=== PATIENT | female | born 1985 | race Caucasian/White ===

== ENCOUNTER → 2016-03-13 | Outpatient (CLI) | payer OTHER ==
[2016-03-13 14:00] LABS: FREE T4 1.29 NG/DL (0.76-1.46)
== END ==
LOC: M WUC 12:11
PROVIDERS: ATTEND Physician Assistant Medical
DX: E06.3 Autoimmune thyroiditis (principal)

== ENCOUNTER → 2016-04-17 | Outpatient (CLI) | payer OTHER ==
[2016-04-17 20:37] LABS: FREE T4 1.21 NG/DL (0.76-1.46)
== END ==
LOC: M WUC 16:34
PROVIDERS: ATTEND Physician Assistant Medical
DX: E06.3 Autoimmune thyroiditis (principal)

== ENCOUNTER 2016-05-04 10:18 | Emergency (ER) | payer OTHER ==
[~2016-05-04] VITALS: Ht 160 cm; Wt 95.3 kg
[2016-05-04 10:18] VITALS: BP 135/78
[2016-05-04] MEDS ORDERED: LEVO150T7 PO (10:35)
[2016-05-04] MEDS ORDERED: PRENTAB52 PO (10:35)
--- NOTE | 2016-05-05 12:21 | ECGEPIP ---
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 Order Number: [id number] Reading MD: Cassidy Hall Measurements Intervals [place] Rate: 67 P: -17 VA: 126 QRS: -1 QRSD: 86 T: 1 QT: 416 QTc: 442 Interpretive Statements SINUS RHYTHM NSTTW ABNORMALITY NO PRIOR FOR COMPARISON Electronically Signed On 05-05-2016 12:21:18 EST by Cassidy Hall
== END 2016-05-04 12:29 | disposition home or self-care (01) ==
LOC: M ED 11:52
DX: O26.892 Other specified pregnancy related conditions, second trimester (principal); M94.0 Chondrocostal junction syndrome [Tietze]; O99.282 Endocrine, nutritional and metabolic diseases complicating pregnancy, second trimester; E03.9 Hypothyroidism, unspecified; Z3A.18 18 weeks gestation of pregnancy; Z79.899 Other long term (current) drug therapy

== ENCOUNTER → 2016-05-09 | Outpatient (CLI) | payer OTHER ==
[~2016-05-09] MED LIST: LEVO150T7 PO; PRENTAB52 PO
--- NOTE | 2016-05-10 10:24 | REP ---
OB ULTRASOUND: Real-time sonographic evaluation of the gravid uterus performed. There is a single intrauterine gestation, estimated gestational age 20 weeks 2 days, EDC 09/24/2016. Today's measurements indicate appropriate growth. BPD 46 mm 19 weeks 6 days, 40th percentile HC 170 mm 19 weeks 4 days, 29th percentile AC 154 mm 20 weeks 4 days, 56th percentile FL 34 mm 20 weeks 5 days, 59th percentile HC/AC ratio 1.10 within normal range. Estimated weight 358 grams, 54th percentile. Cervix is closed and measures 4.6 cm in length. heart rate 144 beats per minute. SEEN/GROSSLY UNREMARKABLE Lateral ventricles Yes Posterior fossa Yes Upper lip Yes Four-chamber heart Yes LVOT Yes RVOT Yes Stomach Yes Cord insertion Yes Three vessel cord Yes Kidneys Yes Bladder Yes Spine Yes Four chamber heart - Echogenic focus in the left ventricle likely related to chordae tendineae. position transverse with head toward the maternal left side. Placenta is anterior and grade 0 with no previa or abruption. Amniotic fluid within normal limits.
== END ==
LOC: M WHC 14:57
PROVIDERS: ATTEND Specialist
DX: Z34.82 Encounter for supervision of other normal pregnancy, second trimester (principal); Z3A.20 20 weeks gestation of pregnancy

== ENCOUNTER → 2016-06-04 | Outpatient (CLI) | payer OTHER ==
[2016-06-04 20:07] LABS: FREE T4 1.2 NG/DL (0.76-1.46)
== END ==
LOC: M WUC 12:30
PROVIDERS: ATTEND Specialist
DX: Z34.82 Encounter for supervision of other normal pregnancy, second trimester (principal)

== ENCOUNTER → 2016-07-23 | Outpatient (CLI) | payer OTHER ==
[2016-07-23 16:44] LABS: BASO % 0.3 % (0.0-1.0); EOS # 0.3 K/mm3 (0.0-0.50); EOS % 3.6 % (0.0-3.0); LARGE UNSTAINED CELL # 0.2 K/mm3 (0.0-0.4); LARGE UNSTAINED CELL % 1.9 % (0.0-4.0); LYMPH # 1.5 K/mm3 (1.5-4.5); LYMPH % 16.4 % (24.0-44.0); MEAN CORPUSCULAR HGB CONC 33.2 g/dl (32.0-36.5); MEAN CORPUSCULAR VOLUME 96.3 fl (80.0-96.0); MONO # 0.4 K/mm3 (0.0-0.8); MONO % 4.3 % (0.0-5.0); NEUTROPHILS # 6.6 K/mm3 (1.8-7.7); NEUTROPHILS % 73.5 % (36.0-66.0); PLATELET COUNT, AUTOMATED 209 k/mm3 (150-450)
== END ==
LOC: M WUC 11:03
PROVIDERS: ATTEND Specialist
DX: Z34.82 Encounter for supervision of other normal pregnancy, second trimester (principal); Z36 Encounter for antenatal screening of mother; E06.3 Autoimmune thyroiditis

== ENCOUNTER → 2016-07-23 | Outpatient (CLI) | payer OTHER ==
[2016-07-23 17:56] LABS: FREE T4 1.01 NG/DL (0.76-1.46)
== END ==
LOC: M WUC 11:09
PROVIDERS: ATTEND Internal Medicine Endocrinology, Diabetes & Metabolism
DX: E06.3 Autoimmune thyroiditis (principal)

== ENCOUNTER → 2016-08-24 | Outpatient (CLI) | payer OTHER ==
[2016-08-24 17:31] LABS: FREE T4 1.1 NG/DL (0.76-1.46)
== END ==
LOC: M WUC 12:40
PROVIDERS: ATTEND Internal Medicine Endocrinology, Diabetes & Metabolism
DX: E06.3 Autoimmune thyroiditis (principal)

== ENCOUNTER 2016-09-03 17:29 | Outpatient (CLI) | payer OTHER ==
[~2016-09-03] VITALS: Ht 160 cm; Wt 103.0 kg
[2016-09-03 18:05] VITALS: BP 111/59
[2016-09-03 19:30] VITALS: BP 113/64
[2016-09-03 20:07] LABS: MEAN CORPUSCULAR HEMOGLOBIN 32.2 pg (27.0-33.0); MEAN CORPUSCULAR HGB CONC 34.9 g/dl (32.0-36.5); MEAN CORPUSCULAR VOLUME 92.4 fl (80.0-96.0); RED CELL DISTRIBUTION WIDTH 13.3 % (11.5-14.5); WHITE BLOOD COUNT 10.9 K/mm3 (4.0-10.0)
[2016-09-03 20:16] VITALS: BP 114/67
[2016-09-03 20:28] LABS: ALBUMIN 2.7 GM/DL (3.2-5.2); ALBUMIN/GLOBULIN RATIO 0.75 (1.00-1.93); ALKALINE PHOSPHATASE 125 U/L (45-117); ALT/SGPT 18 U/L (12-78); AMYLASE 38 U/L (25-115); ANION GAP 11 MEQ/L (8-16); AST/SGOT 20 U/L (15-37); BILIRUBIN,TOTAL 0.3 MG/DL (0.2-1.0); BLOOD UREA NITROGEN 7 MG/DL (7-18); CALCIUM LEVEL 8.3 MG/DL (8.5-10.1); CARBON DIOXIDE LEVEL 21 MEQ/L (21-32); CHLORIDE LEVEL 107 MEQ/L (98-107); CREATININE FOR GFR 0.44 MG/DL (0.55-1.02); GLOMERULAR FILTRATION RATE > 60.0 (>60); GLUCOSE, FASTING 81 MG/DL (70-105); POTASSIUM SERUM 3.7 MEQ/L (3.5-5.1); SODIUM LEVEL 139 MEQ/L (136-145); TOTAL PROTEIN 6.3 GM/DL (6.4-8.2)
== END 2016-09-03 20:45 | disposition home or self-care (01) ==
LOC: M LDO 17:29
PROVIDERS: ATTEND Obstetrics & Gynecology
DX: O26.893 Other specified pregnancy related conditions, third trimester (principal); Z3A.35 35 weeks gestation of pregnancy; R10.12 Left upper quadrant pain; E03.9 Hypothyroidism, unspecified; J45.909 Unspecified asthma, uncomplicated; Z79.899 Other long term (current) drug therapy; O99.283 Endocrine, nutritional and metabolic diseases complicating pregnancy, third trimester; O99.513 Diseases of the respiratory system complicating pregnancy, third trimester

== ENCOUNTER → 2016-09-13 | Outpatient (REF) | payer OTHER ==
[~2016-09-13] MED LIST changes: +ACET50TA PO; +IBUP-1114 PO
== END ==
LOC: M LAB REF 11:40
PROVIDERS: ATTEND Obstetrics & Gynecology
DX: Z34.83 Encounter for supervision of other normal pregnancy, third trimester (principal)

== ENCOUNTER → 2016-10-02 | Outpatient (CLI) | payer OTHER ==
--- NOTE | 2016-10-03 05:52 | REP ---
Clinical: Anatomical evaluation. Comparison: 05/09/2016 . Findings: Examination demonstrates a single live intrauterine in cephalic presentation. motion is identified by technologist. Placenta is noted anteriorly and grade II without evidence for placenta previa or abruption. Amniotic fluid volume is normal. Nuchal cord cannot be excluded. Gestational age by LMP 41 weeks 1 day with ERNA 09/24/2016 . Gestational age by current measurements 39 weeks 5 days with ERNA 10/04/2016 . FHR equals 139 beats per minute. BPD 9.6 39 weeks 1 day HC 35.5 41 weeks 3 days AC 35.6 39 weeks 3 days FL 7.7 39 weeks 4 days HC/AC ratio 1.00 Estimated weight 3851 grams. Amniotic fluid index equals 8.7 cm (7.0 - 19.2). Umbilical cord SD ratio equals 2.58. Impression: 1. Single live advanced gestation in cephalic presentation demonstrating appropriate interval growth. 2. Nuchal cord cannot be excluded. Signed by Angel Morton MD 10/03/2016 05:45 A
== END ==
LOC: M SMT 09:27
PROVIDERS: ATTEND Specialist
DX: Z34.83 Encounter for supervision of other normal pregnancy, third trimester (principal); Z3A.41 41 weeks gestation of pregnancy

== ENCOUNTER 2016-10-04 10:42 | Inpatient (IN) | payer OTHER ==
[~2016-10-04] VITALS: Ht 160 cm; Wt 107.0 kg
[2016-10-04] VITALS (48 sets, daily range): BP systolic 93–148; BP diastolic 48–85
[~2016-10-04 10:42] MED LIST changes: -ACET50TA PO; -IBUP-1114 PO
[2016-10-04] MEDS ORDERED: OXYTOCIN DRIP 30 UNITS in APPROPRIATE DILUENT 1 EA IV SCH (11:00)
[2016-10-04] MEDS: LR 1,000 ML IV SCH ×2 (12:01→18:46)
[2016-10-04 12:17] LABS: MEAN CORPUSCULAR HEMOGLOBIN 33.1 pg (27.0-33.0); MEAN CORPUSCULAR HGB CONC 35.7 g/dl (32.0-36.5); RED CELL DISTRIBUTION WIDTH 13.7 % (11.5-14.5)
--- NOTE | 2016-10-04 12:18 | HPE ---
DATE OF ADMISSION: 10/04/2016 CHIEF COMPLAINT: Spontaneous rupture of membranes. HISTORY OF PRESENT ILLNESS: The patient is a 31-year-old, 8, para 2-0-5-2 at 40 weeks gestation with an estimated delivery date of 10/04/2016 by ultrasound of 02/23/2016. She presents with spontaneous rupture of membranes at 10:30 this morning. The patient denies uterine contractions. She is feeling baby move. She denies bleeding or discharge. Her last intercourse was on Saturday. LABORATORIES: Blood type is O positive. She is Group B streptococcus (GBS) negative. Rubella immune. HIV negative. Gonorrhea and Chlamydia negative. Hepatitis B antigen negative. Hepatitis C nonreactive. Declined genetic screen. VDRL nonreactive. Diabetes screen was 98. Her blood pressure in the office has been ranging from 110 to 132 systolic over 62 to 82 diastolic. OBSTETRICAL ULTRASOUND: From 05/09/2016 showed an anterior placenta without previa or abruption. PAST OBSTETRICAL HISTORY: In 2001 she miscarried at 10 weeks. In 2002 she delivered a female weighing 6 pounds 8 ounces via normal spontaneous vaginal delivery at 38 weeks. In 2003 she had a miscarriage. In 2006 she had a miscarriage. In 2007 she delivered a male weighing 7 pounds via normal spontaneous vaginal delivery at 38 weeks. In 2015 at 6 weeks she had a miscarriage. In 2016 she had another miscarriage. PAST MEDICAL HISTORY: 1. Hypothyroidism. 2. Asthma. MEDICATIONS: - levothyroxine 150 mg daily - vitamins PAST SURGICAL HISTORY: In 2003 dilatation and curettage. ALLERGIES: None. SOCIAL HISTORY: The patient is . Denies tobacco, alcohol or drug use. PHYSICAL EXAMINATION: Vitals: Temperature 97.7 Pulse: 84 Respiratory Rate: 18 Blood Pressure: 128/80 Abdomen is gravid. SVE: 3 cm dilation, 50% effacement, -2 station. FHR: 135 with moderate variability with accelerations, no decelerations. Category 1 tracing. ASSESSMENT AND PLAN: 1. Intrauterine at 40 weeks in active labor. status is reassuring. Admit to labor and delivery. CBC and RPR ordered. 2. Group B streptococcus (GBS) negative. No antibiotics required. 3. The patient would like an epidural. Anesthesia consulted. 4. Anticipate spontaneous vaginal delivery. My preceptor for this patient encounter was Dr. Hurley. The preceptor was physically present in the building during the encounter and was fully available. As needed, all aspects of the patient interview, examination, medical decision making process, and medical care plan development were reviewed and approved by the preceptor. The preceptor is aware and concurs with the plan as stated in the body of this note and will attest to such by his/her cosignature. KENTRELL
[2016-10-04] MEDS ORDERED: FENTANYL 2MCG/ML ROPIVACAINE 0.2% IN 0.9% NACL 200ML IVBAG As Ordered ONE (21:07)
[2016-10-05] VITALS (18 sets, daily range): BP systolic 101–138; BP diastolic 53–73
[2016-10-05] MEDS: LR 1,000 ML IV SCH (02:46)
[2016-10-05] MEDS ORDERED: DOCUSATE SODIUM 100 MG CAP PO PRN (04:00)
[2016-10-05] MEDS ORDERED: NALOXONE INJ 0.4 MG/1 ML VIAL (J2310) IV PRN (04:00)
[2016-10-05] MEDS ORDERED: MEASLES,MUMPS,RUBELLA VACCINE INJ (MMR-II) (90707) SC SCH (04:00)
[2016-10-05] MEDS ORDERED: ONDANSETRON 4MG/2ML VIAL (J2405) IV PRN ×2 (04:00)
[2016-10-05] MEDS ORDERED: EPIDURAL COMMENT XX SCH (04:00)
[2016-10-05] MEDS ORDERED: RHOGAM 300 MCG (1500 IU) INJ (J2790) IM SCH (04:00)
[2016-10-05] MEDS ORDERED: METHYLERGONOVINE MALEATE 0.2 MG TAB PO PRN (04:00)
[2016-10-05] MEDS ORDERED: ePHEDrine SULFATE 25 MG/5 ML(5MG/ML) SYRINGE IV PRN (04:00)
[2016-10-05] MEDS ORDERED: MOM 30ML SUSPENSION UDC PO PRN (04:00)
[2016-10-05] MEDS ORDERED: FENTANYL/ROPIVACAINE/NACL BAG 200 ML EPIDURAL SCH (04:00)
[2016-10-05] MEDS ORDERED: REFRIGERATOR IV KEYS XX PRN (04:00)
[2016-10-05] MEDS ORDERED: diphenhydrAMINE INJ 50MG/ML VIAL (J1200) IV PRN (04:00)
[2016-10-05] MEDS ORDERED: ANUSOL HC CREAM 30GM TOP PRN (04:00)
[2016-10-05] MEDS ORDERED: EPIDURAL/PCA KEYS XX PRN (04:00)
[2016-10-05] MEDS ORDERED: DIBUCAINE 1% OINTMENT 30GM TOP PRN (04:00)
[2016-10-05] MEDS: PRENATAL VITAMINS CHEWABLE TABLET PO SCH (08:23)
[2016-10-05] MEDS: ACETAMINOPHEN 500 MG TAB PO PRN ×2 (08:23→15:24)
[2016-10-05] MEDS: IBUPROFEN 800 MG TAB PO PRN (21:07)
[2016-10-06 06:05] VITALS: BP 151/66
[2016-10-06] MEDS: IBUPROFEN 800 MG TAB PO PRN (06:38)
[2016-10-06] MEDS: PRENATAL VITAMINS CHEWABLE TABLET PO SCH (09:00)
--- NOTE | 2016-10-06 13:28 | DN ---
DATE OF DELIVERY: 10/05/2016 PREDELIVERY DIAGNOSES: 40 weeks , spontaneous rupture of membranes. POSTDELIVERY DIAGNOSIS: Delivered. PROCEDURE: Spontaneous vaginal delivery. EMPLOYMENT LAW SPECIALIST: Saqib Hurley MD ANESTHESIA: Epidural. ESTIMATED BLOOD LOSS: 300 mL. FINDINGS: 8-pound 6-ounce, 3794 gram female infant, scores 9 and 10. DELIVERY SUMMARY: After a short second stage, the patient spontaneously delivered an 8-pound 6-ounce female infant, scores 9 and 10, under epidural anesthesia. Loose nuchal cord times one was reduced. The shoulders delivered with ease. The infant cried spontaneously and was handed to the mother. The cord was doubly clamped and cut. The placenta delivered and appeared to be intact. The patient received intravenous (IV) Pitocin immediately after delivery of the placenta. A small second-degree perineal laceration was repaired with 2-0 chromic under local anesthesia in the usual fashion. Sponge counts were correct.
[2016-10-06] MEDS ORDERED: ACET50TA PO (16:41)
[2016-10-06] MEDS ORDERED: IBUP-1114 PO (16:41)
[2016-10-06] MEDS: ACETAMINOPHEN 500 MG TAB PO PRN (17:20)
== END 2016-10-06 17:50 | disposition home or self-care (01) | DRG 775 ==
LOC: M LDI 10:42 → M OBS 10-05 06:33
PROVIDERS: ADMIT Specialist; ATTEND Specialist
PROC: 10E0XZZ Delivery of Products of Conception, External Approach (ICD-10-PCS; principal; 2016-10-05)
PROC: 0KQM0ZZ Repair Perineum Muscle, Open Approach (ICD-10-PCS; 2016-10-05)
DX: O48.0 Post-term pregnancy (principal); Z37.0 Single live birth; Z3A.40 40 weeks gestation of pregnancy; E03.9 Hypothyroidism, unspecified; O99.284 Endocrine, nutritional and metabolic diseases complicating childbirth; Z79.899 Other long term (current) drug therapy; O70.1 Second degree perineal laceration during delivery

== ENCOUNTER → 2016-10-09 | Outpatient (CLI) | payer OTHER ==
[~2016-10-09] MED LIST changes: +ACET50TA PO; +IBUP-1114 PO
[2016-10-09 14:13] LABS: FREE T4 1.09 NG/DL (0.76-1.46)
== END ==
LOC: M WUC 11:02
PROVIDERS: ATTEND Physician Assistant Medical
DX: E03.9 Hypothyroidism, unspecified (principal)

== ENCOUNTER → 2016-10-16 | Outpatient (CLI) | payer OTHER ==
--- NOTE | 2016-10-16 12:19 | REP ---
ULTRASOUND LEFT BREAST: Real-time sonographic evaluation of the left breast performed. Patient states there is a palpable abnormality between 9 and 12 o'clock in the left breast. The patient is breast feeding and expressed a hour prior to the exam. The ultrasound between 9 and 12 o'clock shows multiple ducts filled with debris. No discrete cystic or solid nodule is seen. IMPRESSION: ACR 2 benign. Between the 9 and 12 o'clock positions of the left breast there are mildly dilated ducts filled with echogenic debris. No discrete cystic or solid nodule is seen. Signed by Daryl Vinson MD 10/16/2016 05:09 P
== END ==
LOC: M RAD 10:16
PROVIDERS: ATTEND Obstetrics & Gynecology
DX: N63 Unspecified lump in breast (principal)

== ENCOUNTER → 2016-11-13 | Outpatient (CLI) | payer OTHER ==
[2016-11-13 13:57] LABS: FREE T4 1.42 NG/DL (0.76-1.46)
== END ==
LOC: M SMT 11:52
PROVIDERS: ATTEND Physician Assistant Medical
DX: E03.9 Hypothyroidism, unspecified (principal)

== ENCOUNTER → 2016-12-05 | Outpatient (CLI) | payer OTHER ==
[2016-12-05 19:35] LABS: FREE T4 1.56 NG/DL (0.76-1.46)
== END ==
LOC: M WUC 10:55
PROVIDERS: ATTEND Physician Assistant Medical
DX: E03.9 Hypothyroidism, unspecified (principal)

== ENCOUNTER → 2017-01-10 | Outpatient (REF) | payer OTHER ==
[2017-01-10 19:13] LABS: FREE T4 1.28 NG/DL (0.76-1.46)
== END ==
LOC: M LABSMT 17:17
PROVIDERS: ATTEND Internal Medicine Endocrinology, Diabetes & Metabolism
DX: E06.3 Autoimmune thyroiditis (principal)

== ENCOUNTER → 2017-04-02 | Outpatient (CLI) | payer OTHER ==
[2017-04-02 20:14] LABS: FREE T4 1.32 NG/DL (0.76-1.46)
== END ==
LOC: M WUC 18:24
DX: E03.9 Hypothyroidism, unspecified (principal)

== ENCOUNTER → 2017-07-19 | Outpatient (CLI) | payer OTHER ==
[2017-07-19 10:45] LABS: FREE T4 1.39 NG/DL (0.76-1.46)
== END ==
LOC: M WUC 09:03
DX: E03.9 Hypothyroidism, unspecified (principal)
CPT/HCPCS: 84443

== ENCOUNTER 2017-08-10 09:25 | Emergency (ER) | payer OTHER ==
[2017-08-10 10:07] LABS: BASO % 0.4 % (0.0-1.0); EOS # 0.5 10^3/uL (0.0-0.50); EOS % 6.6 % (0.0-3.0); HEMATOCRIT 37.1 % (36.0-47.0); HEMOGLOBIN 12.7 g/dl (12.0-15.5); IMMATURE GRANULOCYTE % 0.1 % (0-3.0); LYMPH # 2.5 10^3/uL (1.5-4.5); LYMPH % 36.2 % (24.0-44.0); MEAN CORPUSCULAR HEMOGLOBIN 31.1 pg (27.0-33.0); MEAN CORPUSCULAR HGB CONC 34.2 g/dl (32.0-36.5); MEAN CORPUSCULAR VOLUME 90.9 fl (80.0-96.0); MONO # 0.3 10^3/uL (0.0-0.8); MONO % 4.8 % (0.0-5.0); NEUTROPHILS # 3.5 10^3/uL (1.8-7.7); NEUTROPHILS % 51.9 % (36.0-66.0); PLATELET COUNT, AUTOMATED 219 10^3/uL (150-450); RED BLOOD COUNT 4.08 10^6/uL (4.00-5.40); RED CELL DISTRIBUTION WIDTH 12.2 % (11.5-14.5); WHITE BLOOD COUNT 6.8 10^3/uL (4.0-10.0)
[2017-08-10 10:43] LABS: CONTROL LINE HCG INT CTR LINE PRESENT; HCG, SERUM QUALITATIVE NEGATIVE (NEGATIVE)
[2017-08-10 10:46] LABS: APPEARANCE, URINE CLEAR (CLEAR); BACTERIA, URINE AUTO NEGATIVE (NEGATIVE); BILIRUBIN, URINE AUTO NEGATIVE (NEGATIVE); BLOOD, URINE BLOOD 1+ (NEGATIVE); COLOR, URINE STRAW (YELLOW); GLUCOSE, URINE (UA) AUTO NEGATIVE (NEGATIVE); KETONE, URINE AUTO NEGATIVE (NEGATIVE); LEUKOCYTE ESTERASE, URINE AUTO NEGATIVE (NEGATIVE); NITRITE, URINE AUTO NEGATIVE (NEGATIVE); PROTEIN, URINE AUTO NEGATIVE (NEGATIVE); RBC, URINE AUTO 3 /HPF (0-3); SPECIFIC GRAVITY URINE AUTO 1.005 (1.002-1.035); SQUAMOUS EPITHELIAL CELL UR AU 1 /HPF (0-6); UROBILINOGEN, URINE AUTO 0.2 mg/dL (0.0-2.0); WBC, URINE AUTO 1 /HPF (0-3)
[2017-08-10 10:51] LABS: ALBUMIN 3.7 GM/DL (3.2-5.2); ALBUMIN/GLOBULIN RATIO 0.95 (1.00-1.93); ALKALINE PHOSPHATASE 120 U/L (45-117); ALT/SGPT 19 U/L (12-78); ANION GAP 7 MEQ/L (8-16); AST/SGOT 16 U/L (7-37); BILIRUBIN,TOTAL 0.5 MG/DL (0.2-1.0); BLOOD UREA NITROGEN 12 MG/DL (7-18); CALCIUM LEVEL 8.5 MG/DL (8.5-10.1); CARBON DIOXIDE LEVEL 25 MEQ/L (21-32); CHLORIDE LEVEL 110 MEQ/L (98-107); CREATININE FOR GFR 0.69 MG/DL (0.55-1.30); GLOMERULAR FILTRATION RATE > 60.0 (>60); GLUCOSE, FASTING 98 MG/DL (70-100); POTASSIUM SERUM 4.3 MEQ/L (3.5-5.1); SODIUM LEVEL 142 MEQ/L (136-145); TOTAL PROTEIN 7.6 GM/DL (6.4-8.2)
== END 2017-08-10 12:01 | disposition home or self-care (01) ==
LOC: M ED 09:25
DX: R10.2 Pelvic and perineal pain (principal); R11.0 Nausea; E03.9 Hypothyroidism, unspecified; J45.909 Unspecified asthma, uncomplicated; Z79.899 Other long term (current) drug therapy
CPT/HCPCS: 76856

== ENCOUNTER → 2017-08-29 | Outpatient (CLI) | payer OTHER ==
[2017-08-29 13:24] LABS: TOTAL 25(OH) VITAMIN D 19.5 NG/ML (30.0-100.0)
[2017-08-29 13:50] LABS: FREE T3 2.7 PG/ML (2.2-4.0)
[2017-08-29 13:50] LABS: FREE T4 1.28 NG/DL (0.76-1.46)
[2017-08-30 10:12] LABS: THYROID PEROXIDASE ANTIBODY > 1300.0 U/ML (<60.0)
[2017-09-01 15:27] LABS: T3 REVERSE 22.1 ng/dL (9.2-24.1)
== END ==
LOC: M SMT 08:50
DX: F90.1 Attention-deficit hyperactivity disorder, predominantly hyperactive type (principal); E03.8 Other specified hypothyroidism
CPT/HCPCS: 86800

== ENCOUNTER → 2018-01-06 | Outpatient (CLI) | payer OTHER ==
[2018-01-06 22:13] LABS: FREE T3 2.7 PG/ML (2.2-4.0); FREE T4 1.14 NG/DL (0.76-1.46)
== END ==
LOC: M WUC 17:02
DX: E55.9 Vitamin D deficiency, unspecified (principal); E03.8 Other specified hypothyroidism; F90.1 Attention-deficit hyperactivity disorder, predominantly hyperactive type
CPT/HCPCS: 86255